=== PATIENT | female | born 1980 | race Caucasian/White ===

== ENCOUNTER 2017-08-22 13:57 | Inpatient (IN) ==
[2017-08-22 15:10] LABS: Basophils # 0.1 K/mcL (0.0-0.2); Basophils % 0.5 %; Eosinophils # 0.1 K/mcL (0.0-0.6); Eosinophils % 1.2 %; Hematocrit 41.3 % (35.3-44.9); Hemoglobin 13.8 g/dL (11.5-15.4); Immature Granulocytes % 0.3 % (0-4); Lymphocytes # 2.6 K/mcL (0.6-4.6); Lymphocytes % 24.1 %; Mean Corpuscular HGB Conc 33.4 g/dL (31.6-35.5); Mean Corpuscular Hemoglobin 29.9 pg (28.0-33.3); Mean Corpuscular Volume 89.6 fL (83.0-100.0); Mean Platelet Volume 9.2 fL (9.4-12.4); Monocytes # 0.7 K/mcL (0.0-1.3); Monocytes % 6.3 %; Neutrophils # 7.3 K/mcL (1.6-8.9); Platelet Count 299 K/mcL (140-400); Red Blood Count 4.61 M/mcL (3.82-4.97); Red Cell Distribution Width 14.9 % (11.5-14.5); Segmented Neutrophils % 67.6 %
[2017-08-22 15:15] LABS: Prothrombin Time 11.2 Seconds (9.4-12.1)
[2017-08-22 15:18] LABS: Activated Partial Thrombo Time 28.7 Seconds (26.0-36.0)
[2017-08-22] MEDS ORDERED: 0.9 % Sodium Chloride 1,000 ML IVC ONE (15:51)
[2017-08-22] MEDS ORDERED: Metoclopramide 10 MG/2 ML VIAL IVP ONE (15:51)
--- NOTE | 2017-08-22 15:52 | Emergency Department Note ---
Disposition Clinical Impression: Meningitis Headache Qualifiers: Headache type: unspecified Headache chronicity pattern: unspecified pattern Intractability: not intractable Qualified Code(s): R51 - Headache Disposition: Admitted As Inpatient Condition: Fair Referrals: Rosa Maria Renee CNP [Primary Care Provider] - Forms: ED Satisfaction Letter Time of Disposition: 18:25 Headache HPI - General Chief Complaint: ED Headache Stated Complaint: ONOFRE Time Seen by Provider: 08/22/17 14:40 Source: patient Mode of arrival: ambulatory Limitations: no limitations Nursing Notes Reviewed: Yes Vital Signs Reviewed: Yes - History of Present Illness HPI Narrative: 37-year-old female history of diabetes and hypertension presents for evaluation of a headache. Patient states she has been having a headache over the past 2 or 3 weeks. The patient states headache is worse upon standing. Patient states that her headache gradually worsened since yesterday. Noted to be frontal as well as occipital. Patient reports some nausea but no vomiting. Patient also notes difficulty focusing. Patient denies any vision changes. No change in visual acuity. Patient has any fevers. Patient denies abdominal pain. No chest pain. Patient states she does not have a significant history of migraines. Patient took Motrin earlier today. Patient was evaluated by neurology and was told to come to the ER for further evaluation. Patient denies a possibility of being . Pain Scale: 10 - Related Data Allergies Allergy/AdvReac Type Severity Reaction Status Date / Time No Known Allergies Allergy Verified 08/22/17 14:05 All systems ED: reviewed and negative except as stated. Constitutional: Denies: fever Eyes: Denies: eye pain Cardiovascular: Denies: chest pain Respiratory: Denies: cough, dyspnea Gastrointestinal: Reports: nausea. 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 Absent: scleral icterus - ENT ENT exam: normal exam, normal oropharynx - Neck Neck exam: Present: normal inspection, full ROM. Absent: meningismus - Chest Chest inspection: Present: normal inspection, symmetric chest wall rise - Respiratory Respiratory exam: Present: normal lung sounds bilaterally. Absent: respiratory distress - Cardiovascular Cardiovascular exam: Present: regular rate, normal rhythm. Absent: systolic murmur - Abdominal Exam Abdominal exam: Present: soft, Non-Tender - Extremities Exam Extremities exam: Present: normal inspection. Absent: pedal edema - Expanded Lower Extremity Exam Neurovascular/Tendon exam: Present: normal capillary refill - Back Exam Back exam: Present: normal inspection - Neurological Exam Neurological exam: Present: alert, oriented X3, CN II-XII intact - Expanded Neurological Exam Patient oriented to: Present: person, place, time Speech: Present: fluid speech Cerebellar function: finger to nose: Normal Motor strength - LUE: 5/5 Motor strength - RUE: 5/5 Motor strength - LLE: 5/5 Motor strength - RLE: 5/5 Sensory exam upper extremity: light touch: Normal Sensory exam lower extremity: light touch: Normal Coma Scale Eye Opening: Spontaneous Coma Scale Motor Response: Obeys Commands Coma Scale Verbal Response: Oriented Coma Scale Total: 15 - Skin Skin exam: Present: warm, dry, intact, normal color Course Course Narrative: Patient seen and examined. Patient appears to be in no acute distress. Patient is sitting in a hallway bed. Patient will get basic labs, and symptomatically for headache. Given the fact that there is no proper place to do a lumbar puncture in the emergency department with staffing the patient will be sent down to IR for further evaluation with IR. - Reevaluation(s) Reevaluation #1: Patient back from LP. Opening pressure low and couldn't record. Time: 16:35 Reevaluation #2: Patient still has a headache. Time: 17:19 - Consultations Consultation #1: Spoke with Dr. Olea, neurology who will see the patient as a consult. Time: 18:25 Vital Signs Temperature 97.8 F 08/22/17 14:06 Pulse Rate 102 08/22/17 14:06 Respiratory Rate 16 08/22/17 14:06 Blood Pressure 145/102 08/22/17 14:06 O2 Sat by Pulse Oximetry 98 08/22/17 14:06 Temperature 97.8 F 08/22/17 14:06 Pulse Rate 92 08/22/17 17:03 Respiratory Rate 16 08/22/17 17:03 Blood Pressure 145/74 08/22/17 17:03 O2 Sat by Pulse Oximetry 99 08/22/17 17:03 Oxygen Delivery Oxygen Delivery Room Air Headache - MDM Narrative Medical decision making narrative: Patient presents with signs of severe headache. Patient was sent over by neurology. Patient's CSF results reviewed shows that she does have meningitis. Patient's CSF opening pressure could not be obtained because it was so low. Patient was started on acyclovir, vancomycin, Rocephin. Patient's vitals been stable. Patient pain has been addressed. Patient felt comfortable. She will be admitted to the hospitalist service with neurology consult. - Lab Data Lab results reviewed: Yes I reviewed the patient's lab results. Result diagrams: 08/22/17 14:51 08/22/17 14:51 Lab Results 08/22/17 08/22/17 08/22/17 Range/Units 14:51 14:51 14:51 WBC 10.8 (4.3-11.1) K/mcL RBC 4.61 (3.82-4.97) M/mcL Hgb 13.8 (11.5-15.4) g/dL Hct 41.3 (35.3-44.9) % MCV 89.6 (83.0-100.0) fL MCH 29.9 (28.0-33.3) pg MCHC 33.4 (31.6-35.5) g/dL RDW 14.9 H (11.5-14.5) % Plt Count 299 (140-400) K/mcL MPV 9.2 L (9.4-12.4) fL Immature Gran % 0.3 (0-4) % Seg Neutrophils % 67.6 % Lymphocytes % 24.1 % Monocytes % 6.3 % Eosinophils % 1.2 % Basophils % 0.5 % Neutrophils # 7.3 (1.6-8.9) K/mcL Lymphocytes # 2.6 (0.6-4.6) K/mcL Monocytes # 0.7 (0.0-1.3) K/mcL Eosinophils # 0.1 (0.0-0.6) K/mcL Basophils # 0.1 (0.0-0.2) K/mcL PT 11.2 (9.4-12.1) Seconds INR 1.0 APTT 28.7 (26.0-36.0) Seconds Sodium 138 (136-145) mEq/L Potassium 3.7 (3.5-5.1) mEq/L Chloride 104 (98-107) mEq/L Carbon Dioxide 23 (23-29) mEq/L BUN 14 (6-20) mg/dL Creatinine 0.62 (0.60-1.20) mg/dL Est GFR ( Amer) > 60 (> 60) Est GFR (Non-Af Amer) > 60 (> 60) BUN/Creatinine Ratio 23 (6-26) Glucose 144 H (70-105) mg/dL Calculated Osmolality 289 (280-300) Calcium 9.2 (8.6-10.3) mg/dL Total Bilirubin 0.6 (0.3-1.0) mg/dL Direct Bilirubin 0.1 (0.0-0.2) mg/dL Indirect Bilirubin 0.5 (0.0-1.2) mg/dL AST 18 (13-39) Units/L ALT 35 (7-52) Units/L Alkaline Phosphatase 65 (34-104) Units/L Serum Total Protein 6.9 (6.4-8.9) g/dL Albumin 4.5 (3.5-5.7) g/dL Globulin 2.4 (2.4-3.5) g/dL Albumin/Globulin Ratio 1.9 (1.1-2.2) Urine Test (Negative) CSF Volume mL CSF Appearance (Clear) CSF Color (Colorless) CSF RBC (0.000 - 0.002) M/mcL CSF Tot Nucleated Cells (0-5) TNC/mcL CSF Glucose (40-70) mg/dL CSF Xanth Comm (Not Observe) CSF Total Protein (15-45) mg/dL 08/22/17 08/22/17 Range/Units 16:21 17:28 WBC (4.3-11.1) K/mcL RBC (3.82-4.97) M/mcL Hgb (11.5-15.4) g/dL Hct (35.3-44.9) % MCV (83.0-100.0) fL MCH (28.0-33.3) pg MCHC (31.6-35.5) g/dL RDW (11.5-14.5) % Plt Count (140-400) K/mcL MPV (9.4-12.4) fL Immature Gran % (0-4) % Seg Neutrophils % % Lymphocytes % % Monocytes % % Eosinophils % % Basophils % % Neutrophils # (1.6-8.9) K/mcL Lymphocytes # (0.6-4.6) K/mcL Monocytes # (0.0-1.3) K/mcL Eosinophils # (0.0-0.6) K/mcL Basophils # (0.0-0.2) K/mcL PT (9.4-12.1) Seconds INR APTT (26.0-36.0) Seconds Sodium (136-145) mEq/L Potassium (3.5-5.1) mEq/L Chloride (98-107) mEq/L Carbon Dioxide (23-29) mEq/L BUN (6-20) mg/dL Creatinine (0.60-1.20) mg/dL Est GFR ( Amer) (> 60) Est GFR (Non-Af Amer) (> 60) BUN/Creatinine Ratio (6-26) Glucose (70-105) mg/dL Calculated Osmolality (280-300) Calcium (8.6-10.3) mg/dL Total Bilirubin (0.3-1.0) mg/dL Direct Bilirubin (0.0-0.2) mg/dL Indirect Bilirubin (0.0-1.2) mg/dL AST (13-39) Units/L ALT (7-52) Units/L Alkaline Phosphatase (34-104) Units/L Serum Total Protein (6.4-8.9) g/dL Albumin (3.5-5.7) g/dL Globulin (2.4-3.5) g/dL Albumin/Globulin Ratio (1.1-2.2) Urine Test Negative (Negative) CSF Volume 8.5 mL CSF Appearance Clear (Clear) CSF Color Colorless (Colorless) CSF RBC < 0.002 (0.000 - 0.002) M/mcL CSF Tot Nucleated Cells 27 H* (0-5) TNC/mcL CSF Glucose 83 H (40-70) mg/dL CSF Xanth Comm Not Observed (Not Observe) CSF Total Protein 84 H (15-45) mg/dL - Radiology Data Radiology results reviewed: Yes I reviewed the patient's radiology results. CT/CT head/brain wo con IMPRESSION: No acute intraparenchymal hemorrhage or evidence of acute major vessel ischemia. Extra-axial fluid is pronounced for age. Hounsfield number measurements suggest uncomplicated fluid. RECOMMENDATIONS: Consider MRI imaging of the brain. D/ / Elli Chopra MD / Elli Chopra MD Interpreting Provider: Elli Chopra MD Lito - Lito Situation: Demographics Background: Presenting Complaint Assessment: Vital Signs, Patient/Family Expectation Recommendation: Barrier(s) to disposition, Recommendation based on pending studies, treatments, or consults Lito Report Given to: Dr. Jay Morse Repor Time: 18:26 Attestation Statement - Attestation Attestation: I examined this patient and my medical decision-making was reviewed with the Resident Physician. I agree with the documented findings, disposition and treatment plan as described except to the extent set forth below. Findings consistent with viral meningitis. Discussed case with on-call neurologist. We will start broad spectrum antibiotics to cover for possible bacterial causes pending culture results. Patient will be admitted after initiation of vancomycin, ceftriaxone, acyclovir. Patient's headache was controlled with Haldol.
[2017-08-22] MEDS ORDERED: Haloperidol Lactate 5 MG/ML VIAL IVP ONE (17:18)
[2017-08-22] MEDS ORDERED: Dexamethasone 4 MG/ML VIAL IVP ONE (17:18)
[2017-08-22 17:20] LABS: Red Blood Cell,CSF < 0.002 M/mcL
[2017-08-22 17:31] LABS: Alanine Aminotransferase 35 Units/L (7-52); Albumin 4.5 g/dL (3.5-5.7); Albumin/Globulin Ratio 1.9 (1.1-2.2); Alkaline Phosphatase 65 Units/L (34-104); Aspartate Amino Transferase 18 Units/L (13-39); BUN/Creatinine Ratio 23 (6-26); Bilirubin,Direct 0.1 mg/dL (0.0-0.2); Bilirubin,Indirect 0.5 mg/dL (0.0-1.2); Bilirubin,Total 0.6 mg/dL (0.3-1.0); Blood Urea Nitrogen 14 mg/dL (6-20); Calcium 9.2 mg/dL (8.6-10.3); Carbon Dioxide 23 mEq/L (23-29); Chloride 104 mEq/L (98-107); Globulin 2.4 g/dL (2.4-3.5); Glucose 144 mg/dL (70-105); Osmolality,Calculated 289 (280-300); Potassium 3.7 mEq/L (3.5-5.1); Sodium 138 mEq/L (136-145); Total Protein 6.9 g/dL (6.4-8.9); eGFR For African Americans > 60 (> 60); eGFR For Non-African Americans > 60 (> 60)
[2017-08-22 17:39] LABS: Glucose,CSF 83 mg/dL (40-70); Total Protein,CSF 84 mg/dL (15-45)
[2017-08-22] MEDS ORDERED: Acyclovir 500 MG in D5% in Water 100 ML IVPB ONE (17:53)
[2017-08-22] MEDS ORDERED: cefTRIAXone 2,000 MG in Water for inj. (sterile) 20 ML 20 ML IVP ONE (17:53)
[2017-08-22 18:15] LABS: Appearance,CSF Clear (Clear)
--- NOTE | 2017-08-22 21:43 | Internal Med History&Physical ---
Date of Encounter: 08/22/17 Time of Encounter: 21:41 Assessment and Plan (1) Diabetes 1.5, managed as type 2 Current visit: Yes Status: Chronic Chronic resume home medication and place on sliding scale (2) HTN (hypertension) Current visit: Yes Status: Chronic Chronic blood pressure relatively controlled Qualifiers: Hypertension type: essential hypertension Qualified Code(s): I10 - Essential (primary) hypertension (3) Obesity Current visit: Yes Status: Chronic Qualifiers: Obesity type: due to excess calories Obesity classification: unspecified obesity classification Serious obesity comorbidity presence: unspecified whether serious comorbidity present Qualified Code(s): E66.09 - Other obesity due to excess calories (4) Headache Current visit: Yes Status: Acute Admitted due to meningitis Qualifiers: Headache type: unspecified Headache chronicity pattern: unspecified pattern Intractability: not intractable Qualified Code(s): R51 - Headache (5) Meningitis Current visit: Yes Status: Acute Patient is seen by neurology to the ER LP CSF suggestive of meningitis we will continue antibiotic and consult neurology for further evaluation Internal Medicine - H&P: HPI Chief complaint: headache x 3 weeka Admitted From: Emergency Dept Plans for Post Hospital Care: Home History of present illness: Ms. Austin is a 37 year old female Patient with history of diabetes, hypertension, obesity, patient was seen by neurology due to 2-3 weeks of a headache located frontal and occipital area which has gotten worse in the last 2 days with nausea and difficulty focusing patient was then sent to the emergency room for evaluation In the ER patient had LP done which is suggestive of meningitis and was given acyclovir vancomycin and Rocephin and admitted for further neurologic consult and evaluation CSF showed increased glucose, protein and nucleated cells patient denies any visual disturbance CT of the head was unremarkable Past Med Surg Social Fam HX - Past Medical History Medical history: diabetes, hypertension Psychiatric history: no psych history - Social History Smoking Status: Never smoker Smokeless Tobacco Status: No Alcohol use: none Drug use: none - Family History Mother Living Status: Still Living Hx Family Cardiac Disorders: Yes Father Living Status: Still Living Hx Family Cardiac Disorders: Yes Hx Family Endocrine Disorder: Yes (DM) Internal Medicine - H&P: Meds Acetylcysteine [K-Xtxdal-x-Cysteine] 600 mg PO BID 08/22/17 [History] Amoxicillin/Clavulanate [Augmentin] 875 mg PO BID 08/22/17 [History] Cyclobenzaprine HCl 5 mg PO TID PRN 08/22/17 [History] Dapagliflozin Propanediol [Farxiga] 5 mg PO DAILY 08/22/17 [History] Gabapentin [Neurontin] 300 mg PO HS 08/22/17 [History] Insulin NPH, HUMAN [HumuLIN N] 24 unit SQ BID 08/22/17 [History] Insulin Regular, Human [Novolin R] 0 unit SQ TIDWM 08/22/17 [History] Liraglutide [Saxenda] 1.8 mg SQ QPM 08/22/17 [History] Metformin HCl [Glucophage] 1,000 mg PO BID 08/22/17 [History] Methyldopa 750 mg PO BID 08/22/17 [History] Metoprolol Succinate 100 mg PO DAILY 08/22/17 [History] Norethindrone Acetate [Norethindrone AC ([place])] 5 mg PO DAILY 08/22/17 [ History] [place]-3/Dha/Epa/Fish Oil [Fish Oil 1,000 mg Softgel] 1,000 mg PO DAILY 08/22/17 [History] Ondansetron ODT [Zofran ODT] 4 mg PO BID PRN 08/22/17 [History] Pnv with Ca,No.72/Iron/FA [Pnv Plus Multivit Tab] 1 tab PO DAILY [History] SUMAtriptan succinate [Imitrex] 50 mg PO Q2H PRN MDD 100 mg 08/22/17 [History] hydroCHLOROthiazide [Hydrochlorothiazide] 25 mg PO DAILY 08/22/17 [History] 3 Allergy/AdvReac Type Severity Reaction Status Date / Time No Known Allergies Allergy Verified 08/22/17 14:05 All Systems PM: A 10-system review of systems was performed and is negative for pertinent findings except as documented above in the HPI. - Constitutional Constitutional: other - EENT Eyes: no change in vision, no discharge, no pain, no photophobia Ears: no ear discharge, no ear pain, no tinnitus Nose, mouth and throat: no dysphagia, no nasal discharge, no neck pain, no sore throat - Cardiovascular Cardiovascular ROS IM: no chest pain, no diaphoresis, no dyspnea, no lightheadedness, no palpitations, no syncope - Respiratory Respiratory: no cough, no dyspnea, no wheezing, no excessive phlegm production - Gastrointestinal Gastrointestinal: no abdominal pain, no diarrhea, no hematemesis, no hematochezia, no melena, no nausea, no vomiting - Genitourinary Genitourinary: no change in urinary stream, no dysuria, no flank pain, no hematuria - Musculoskeletal Musculoskeletal ROS IM: no numbness, no tingling - Integumentary Integumentary IM: no rash, no unusual bruising - Neurological Neurological ROS: headache(s) - Constitutional Vitals: Temp Pulse Resp BP Pulse Ox 98.3 F 106 16 146/71 95 08/22/17 20:31 08/22/17 20:31 08/22/17 20:31 08/22/17 20:31 08/22/17 20:31 - Head Head exam: Present: atraumatic, normocephalic - Eye Eye exam: Present: PERRL, conjuntiva pink, sclera anicteric Pupils: Present: PERRL - Neck Neck exam general surgery: Present: supple, trachea midline. Absent: lymphadenopathy - Respiratory Respiratory exam: Present: CTAB. Absent: accessory muscle use, rales, rhonchi, wheezes - Cardiovascular Cardiovascular exam: Present: RRR, +S1, +S2. Absent: diastolic murmur, gallop, rubs, systolic murmur - GI/Abdominal GI/Abdominal exam: Present: normal bowel sounds, soft, no peritoneal signs. Absent: distended, tenderness - Extremities Exam Extremities exam: Present: warm, radial pulses palpable and symmetrical. Absent : calf tenderness, cyanotic, pedal edema - Neurological Exam Neurological exam: Present: CN II-XII intact, oriented X3, no focal deficits. Absent: pronater drift, facial droop, speech deficit - Skin Skin exam: Present: dry, intact Internal Med - H&P Results - Labs CBC & Chem 7: 08/22/17 14:51 08/22/17 14:51
[2017-08-22] MEDS ORDERED: Naloxone 0.4 MG/ML INJ IVP PRN (21:48)
[2017-08-22] MEDS ORDERED: SUMAtriptan succinate 50 MG TABLET PO PRN (21:50)
[2017-08-22] MEDS ORDERED: 0.9 % Sodium Chloride 1,000 ML ONE (22:07)
[2017-08-22] MEDS: 0.9 % Sodium Chloride 1,000 ML IVC SCH (22:42)
[2017-08-23] MEDS: Acyclovir 750 MG in D5% in Water 250 ML IVPB SCH ×2 (02:01→15:11)
[2017-08-23] MEDS: Acetaminophen 325 MG TABLET PO PRN ×3 (02:08→17:58)
[2017-08-23 05:59] LABS: Hematocrit 43.5 % (35.3-44.9); Hemoglobin 14.2 g/dL (11.5-15.4); Mean Corpuscular HGB Conc 32.6 g/dL (31.6-35.5); Mean Corpuscular Hemoglobin 29.5 pg (28.0-33.3); Mean Corpuscular Volume 90.2 fL (83.0-100.0); Mean Platelet Volume 9.3 fL (9.4-12.4); Platelet Count 363 K/mcL (140-400); Red Blood Count 4.82 M/mcL (3.82-4.97); Red Cell Distribution Width 14.6 % (11.5-14.5)
[2017-08-23] MEDS ORDERED: *HR* Enoxaparin 40 MG/0.4 ML SYRINGE SQ SCH (06:00)
[2017-08-23 06:19] LABS: Alanine Aminotransferase 38 Units/L (7-52); Albumin 4.5 g/dL (3.5-5.7); Albumin/Globulin Ratio 1.7 (1.1-2.2); Alkaline Phosphatase 75 Units/L (34-104); Aspartate Amino Transferase 15 Units/L (13-39); BUN/Creatinine Ratio 19 (6-26); Bilirubin,Total 0.6 mg/dL (0.3-1.0); Blood Urea Nitrogen 11 mg/dL (6-20); Calcium 9.2 mg/dL (8.6-10.3); Carbon Dioxide 21 mEq/L (23-29); Chloride 101 mEq/L (98-107); Chol/HDL Ratio 7.2 (0-4.9); Cholesterol 274 mg/dL (< 200); Globulin 2.6 g/dL (2.4-3.5); Glucose 208 mg/dL (70-105); HDL Cholesterol 38 mg/dL (40-59); LDL Cholesterol,Calculated 164 mg/dL (0-99); Magnesium 1.9 mg/dL (1.6-2.6); Osmolality,Calculated 285 (280-300); Potassium 4.3 mEq/L (3.5-5.1); Sodium 135 mEq/L (136-145); Total Protein 7.1 g/dL (6.4-8.9); Triglycerides 360 mg/dL (< 150); eGFR For African Americans > 60 (> 60); eGFR For Non-African Americans > 60 (> 60)
--- NOTE | 2017-08-23 08:24 | Neurology Progress Note ---
Date of Encounter: 08/23/17 Time of Encounter: 08:22 Assessment and Plan (1) Viral meningitis, unspecified Current Visit: Yes Status: Acute It seems that we are dealing with an uncomplicated viral meningitis. There is no evidence of encephalitis. Clinically she is improved today her headache is 4 /10 as opposed to yesterday morning was 10 out of 10. Recommend maintaining on antibiotics until cultures are completed. If this is a herpes meningitis a treatment is generally the same as it is with any aseptic meningitis. Recovery may be expedited by continuing oral acyclovir for 10 days or so after she is discharged. Recommend ongoing pain management as necessary and fluid hydration. MRI of the brain will be ordered to further assess and clarify the CT abnormalities. I will continue to follow her. Subjective Principal diagnosis: Viral meningitis Interval history: The chart was reviewed, the patient was seen and examined. Patient was sent to the ED from my office after a week of occipital nuchal headache that was intensifying. Ultimately lumbar puncture was performed and revealed elevated white blood cells and elevated protein. 79% lymphocytes, 19% monocytes. Gram stain was negative. Patient has no mental status changes or seizures. We are likely dealing with an uncomplicated viral meningitis. CT scan of the brain was normal. The patient this morning states that her headache is about a 4 on a scale of 10. Yesterday it was definitely a 10 out of 10. She still has some photophobia. Otherwise she is awake and alert and oriented. Objective - Constitutional Vitals: Temp Pulse Resp BP Pulse Ox 98.7 F 115 16 153/86 97 08/23/17 06:34 08/23/17 06:34 08/23/17 06:34 08/23/17 06:34 08/23/17 06:34 - Neurological Exam Sensorimotor examination: Present: intact Motor Examination: Present: grossly full strength in all extremities Motor examination - right side: 5/5: deltoids, biceps, triceps, cfo controller, hip flexors, tibialis Anterior, quadriceps, toe extension (EHL), plantarflexion Motor examination - left side: 5/5: deltoids, biceps, triceps, cfo controller, quadriceps , tibialis Anterior, toe extension (EHL), plantarflexion Sensation intact: Present: intact Reflex and gait examination: intact Reflexes: Biceps: 2+, Triceps: 2+, Brachioradialis: 2+, Patella: 2+, Achilles: 2 + Mental Status Examination: Present: awake, alert, oriented to person, oriented to place, oriented to time, follows commands appropriately, answers questions appropriately, no agnosia, no aphasia, no aproxia, lucid Cranial nerve examination: Present: PERRL, EOMI, visual jefferson intact, corneal reflexes brisk symmetrically, sensory to face intact, mastication intact, no facial asymmetry is present, no dysarthria, hearing is intact symmetrically, tongue protrudes midline Cerebellar examination: Present: no dysmetria, performs finger to nose and heel to chavez symmetrically without ataxia, no gait ataxia Results - Laboratory Findings CBC and BMP: 08/23/17 05:24 08/23/17 05:24 Abnormal lab findings: Abnormal lab results WBC 14.9 K/mcL (4.3-11.1) H 08/23/17 05:24 RDW 14.6 % (11.5-14.5) H 08/23/17 05:24 MPV 9.3 fL (9.4-12.4) L 08/23/17 05:24 Sodium 135 mEq/L (136-145) L 08/23/17 05:24 Carbon Dioxide 21 mEq/L (23-29) L 08/23/17 05:24 Creatinine 0.59 mg/dL (0.60-1.20) L 08/23/17 05:24 Glucose 208 mg/dL (70-105) H 08/23/17 05:24 POC Glucose 188 (58-89) H 08/22/17 22:51 Triglycerides 360 mg/dL (< 150) H 08/23/17 05:24 Cholesterol 274 mg/dL (< 200) H 08/23/17 05:24 LDL Cholesterol, Calc 164 mg/dL (0-99) H 08/23/17 05:24 VLDL Cholesterol, Calc 72 mg/dL (< 31) H 08/23/17 05:24 HDL Cholesterol 38 mg/dL (40-59) L 08/23/17 05:24 Cholesterol/HDL Ratio 7.2 (0-4.9) H 08/23/17 05:24 CSF Tot Nucleated Cells 27 TNC/mcL (0-5) H* 08/22/17 16:21 CSF Glucose 83 mg/dL (40-70) H 08/22/17 16:21 CSF Total Protein 84 mg/dL (15-45) H 08/22/17 16:21 Consult Discharge Plan - Plan Referrals: Rosa Maria Renee CNP [Primary Care Provider] -
[2017-08-23] MEDS: *HR* Acetylcysteine 20% 600 MG/3 ML ORAL SYRINGE PO SCH ×2 (09:24→20:42)
[2017-08-23] MEDS: Prenatal Vit/FA 1 EACH TABLET PO SCH (09:25)
[2017-08-23] MEDS: cefTRIAXone 1,000 MG in Water for inj. (sterile) 20 ML 10 ML IVP SCH (09:25)
[2017-08-23] MEDS: Insulin NPH 100 UNIT/ML (x5UNIT) SQ SCH ×2 (09:48→20:42)
[2017-08-23] MEDS: (Dapagliflozin Propanediol [Farxiga] 5 MG) PO SCH (09:50)
[2017-08-23] MEDS: (Omega-3/Dha/Epa/Fish Oil [Fish Oil 1,000 Mg Softgel]) PO SCH (09:50)
[2017-08-23] MEDS ORDERED: Dextrose Gel 15 GM/37.5 ML TUBE PO PRN ×2 (12:20)
[2017-08-23] MEDS ORDERED: *HR* Dextrose 50 % in Water (Syg) 50 ML SYRINGE IVP PRN (12:20)
[2017-08-23] MEDS ORDERED: D5% in Water 1,000 ML IVC PRN (12:20)
[2017-08-23] MEDS ORDERED: Insulin LISPRO 300 UNITS/3 ML VIAL SQ ONE (12:38)
[2017-08-23] MEDS: traMADol 50 MG TABLET PO PRN ×2 (15:17→21:15)
[2017-08-23] MEDS: 0.9 % Sodium Chloride 1,000 ML IVC SCH (16:29)
[2017-08-23] MEDS ORDERED: Insulin LISPRO 300 UNITS/3 ML VIAL SQ SCH (16:30)
--- NOTE | 2017-08-23 16:39 | Internal Med Progress Note ---
Date of Encounter: 08/23/17 Time of Encounter: 16:05 - Assessment and plan (1) Viral meningitis, unspecified Current Visit: Yes Status: Acute Assessment and plan: No evidence of encephalitis her headache has improved since presenting yesterday to the ER. We will continue with antibiotics pending culture results. We will also continue with acyclovir for any possible herpes meningitis continue with IV fluids and pain medications. Neurology has been consulted and appreciate their recommendations (2) Headache Current Visit: Yes Status: Acute Assessment and plan: Patient has been experiencing a headache over the past 2-3 weeks. Patient states headache is worse upon standing she describes the pain headache as pressure radiating from back to front of head. Initially she had some nausea but no vomiting and photophobia. She was seen by neurology sent to the ER evaluation underwent LP-viral meningitis. CT of head with no abnormalities she did undergo a MRI of head which did show diffuse bilateral holohemispheric subdural collections measuring up to 5 mm in thickness compatible with chronic subdural hematoma/hygroma. There is diffuse patchy meningeal thickening and enhancement which is probablly reactive. I did review this with Dr. Olea neurology who will further review MRI. Patient may need to be transferred to a facility with neurosurgery discussed this with patient and who is at bedside who verbalized understanding and agrees to possible transfer if needed Qualifiers: Headache type: unspecified Headache chronicity pattern: unspecified pattern Intractability: not intractable Qualified Code(s): R51 - Headache (3) Diabetes 1.5, managed as type 2 Current Visit: Yes Status: Chronic Assessment and plan: We will continue with Accu-Cheks before meals at bedtime with sliding scale insulin as well as basal insulin Diabetic diet (4) HTN (hypertension) Current Visit: Yes Status: Chronic Assessment and plan: Presently controlled will continue with home medications Qualifiers: Hypertension type: essential hypertension Qualified Code(s): I10 - Essential (primary) hypertension - Time Spent With Patient less than 15 minutes - Subjective Interval history: Patient states that she does have a headache however is greatly improved from when she first arrived to the hospital. She describes the headache as dull starting at the neck radiating to the top of her head. She denies any nausea/ vomiting or photophobia. Pain is relieved with pain medication. No other complaints - Constitutional Vitals: Temp Pulse Resp BP Pulse Ox 98.8 F 98 15 149/97 99 08/23/17 15:03 08/23/17 15:03 08/23/17 15:03 08/23/17 15:03 08/23/17 15:03 General appearance: Present: A&O X 3 - Head Head exam: Present: atraumatic, normocephalic - Eye Eye exam: Present: PERRL, conjuntiva pink, sclera anicteric Pupils: Present: PERRL - Neck Neck exam general surgery: Present: supple, trachea midline. Absent: lymphadenopathy - Respiratory Respiratory exam: Present: CTAB. Absent: accessory muscle use, rales, rhonchi, wheezes - Cardiovascular Cardiovascular exam: Present: RRR, +S1, +S2. Absent: diastolic murmur, gallop, rubs, systolic murmur - GI/Abdominal GI/Abdominal exam: Present: normal bowel sounds, soft, no peritoneal signs. Absent: distended, tenderness - Extremities Exam Extremities exam: Present: warm, radial pulses palpable and symmetrical. Absent : calf tenderness, cyanotic, pedal edema - Neurological Exam Neurological exam: Present: CN II-XII intact, oriented X3, no focal deficits. Absent: pronater drift, facial droop, speech deficit - Skin Skin exam: Present: dry, intact Internal Medicine: Result - Labs CBC & Chem 7: 08/23/17 05:24 08/23/17 05:24 Labs: Short CBC 08/23/17 Range/Units 05:24 WBC 14.9 H (4.3-11.1) K/mcL Hgb 14.2 (11.5-15.4) g/dL Hct 43.5 (35.3-44.9) % Plt Count 363 (140-400) K/mcL BMP 08/23/17 05:24 Sodium 135 L Potassium 4.3 Chloride 101 Carbon Dioxide 21 L BUN 11 Creatinine 0.59 L Glucose 208 H Calcium 9.2 Liver Function 08/23/17 Range/Units 05:24 Total Bilirubin 0.6 (0.3-1.0) mg/dL AST 15 (13-39) Units/L ALT 38 (7-52) Units/L Alkaline Phosphatase 75 (34-104) Units/L Albumin 4.5 (3.5-5.7) g/dL - ABG Interpretation ABG results: PT/INR, D-dimer PT 11.2 Seconds (9.4-12.1) 08/22/17 14:51 - Impressions Impressions Brain MRI 08/23/17 08:31 IMPRESSION: 1. Diffuse bilateral holohemispheric subdural collections measuring up to 5 mm in thickness compatible with chronic subdural hematoma/hygroma. There is diffuse pachymeningeal thickening and enhancement which is probably reactive. Differential diagnosis includes intracranial hypotension. D/ / 08/23/2017 11:38:50 Tete Robertson MD / levon Interpreting Provider: Tete Robertson MD - Diagnostic Studies Other Images Additional comments: Lumbar Puncture Fluoroscopy 08/22/17 00:00 IMPRESSION: Successful fluoroscopic-guided lumbar puncture. D/ / 08/23/2017 10:36:47 Emely Nuñez MD / daily Interpreting Provider: Emely Nuñez MD Brain MRI 08/23/17 08:31 IMPRESSION: 1. Diffuse bilateral holohemispheric subdural collections measuring up to 5 mm in thickness compatible with chronic subdural hematoma/hygroma. There is diffuse pachymeningeal thickening and enhancement which is probably reactive. Differential diagnosis includes intracranial hypotension. D/ / 08/23/2017 11:38:50 Tete Robertson MD / levon Interpreting Provider: Tete Robertson MD Consult Discharge Plan - Plan Referrals: Rosa Maria Renee, CREDIT CASHIER [Primary Care Provider] -
[2017-08-23] MEDS: LIRAGLUTIDE 1.8 MG SQ SCH (17:51)
[2017-08-23] MEDS: Insulin LISPRO 300 UNITS/3 ML VIAL SQ SCH ×2 (18:05→20:43)
[2017-08-23] MEDS: Gabapentin 300 MG CAPSULE PO SCH (20:42)
[2017-08-23] MEDS: Lactobacillus 1 EACH CAP.SPRINK PO SCH (23:19)
[2017-08-24] MEDS: Acyclovir 750 MG in D5% in Water 250 ML IVPB SCH ×4 (00:10→23:35)
[2017-08-24 04:16] LABS: Basophils % 0.3 %; Eosinophils % 0.3 %; Hematocrit 37.7 % (35.3-44.9); Hemoglobin 12.7 g/dL (11.5-15.4); Immature Granulocytes % 0.3 % (0-4); Lymphocytes % 27.8 %; Mean Corpuscular HGB Conc 33.7 g/dL (31.6-35.5); Mean Corpuscular Volume 89.1 fL (83.0-100.0); Mean Platelet Volume 9.3 fL (9.4-12.4); Monocytes # 0.8 K/mcL (0.0-1.3); Monocytes % 7.2 %; Neutrophils # 6.8 K/mcL (1.6-8.9); Platelet Count 310 K/mcL (140-400); Red Blood Count 4.23 M/mcL (3.82-4.97); Red Cell Distribution Width 15.1 % (11.5-14.5); Segmented Neutrophils % 64.1 %
[2017-08-24 04:42] LABS: BUN/Creatinine Ratio 24 (6-26); Blood Urea Nitrogen 11 mg/dL (6-20); Calcium 8.6 mg/dL (8.6-10.3); Carbon Dioxide 22 mEq/L (23-29); Chloride 107 mEq/L (98-107); Glucose 194 mg/dL (70-105); Osmolality,Calculated 291 (280-300); Potassium 3.8 mEq/L (3.5-5.1); Sodium 138 mEq/L (136-145); eGFR For African Americans > 60 (> 60); eGFR For Non-African Americans > 60 (> 60)
[2017-08-24] MEDS: cefTRIAXone 1,000 MG in Water for inj. (sterile) 20 ML 10 ML IVP SCH (08:17)
[2017-08-24] MEDS: *HR* Acetylcysteine 20% 600 MG/3 ML ORAL SYRINGE PO SCH ×2 (08:21→21:07)
[2017-08-24] MEDS: Acetaminophen 325 MG TABLET PO PRN ×3 (08:23→21:11)
[2017-08-24] MEDS: hydroCHLOROthiazide 25 MG TABLET PO SCH (08:23)
[2017-08-24] MEDS: Lactobacillus 1 EACH CAP.SPRINK PO SCH ×2 (08:23→21:06)
[2017-08-24] MEDS: Prenatal Vit/FA 1 EACH TABLET PO SCH (08:24)
[2017-08-24] MEDS: Insulin LISPRO 300 UNITS/3 ML VIAL SQ SCH ×4 (08:34→21:08)
[2017-08-24] MEDS: (Omega-3/Dha/Epa/Fish Oil [Fish Oil 1,000 Mg Softgel]) PO SCH (08:35)
[2017-08-24] MEDS: (Dapagliflozin Propanediol [Farxiga] 5 MG) PO SCH (08:35)
[2017-08-24] MEDS ORDERED: Lactobacillus 1 EACH CAP.SPRINK PO SCH (09:00)
--- NOTE | 2017-08-24 09:12 | Neurology Progress Note ---
Date of Encounter: 08/24/17 Time of Encounter: 09:09 Assessment and Plan (1) Viral meningitis, unspecified Current Visit: Yes Status: Acute (2) Chronic intracranial subdural hematoma Current Visit: Yes Status: Acute The MRI scan of the brain does show what appears to be chronic subdural hematoma /hygroma along with enhancement of the meninges. This is not uncommon in individuals with low CSF pressure. Generally low CSF pressure is associated with some previous trauma, or dural puncture. However in this case it seems to be spontaneous. Not certain whether not this this may be the result of massage , or whether or not this may be a result of the viral meningitis. But in any regard to headaches are still waxing and waning. I would like to get a neurosurgical opinion on this and determine whether or not an angiogram is necessary. She might also need hypercoagulable workup. Fluid hydration is certainly in order. I would recommend we continue the antibiotics now pending final culture. I would recommend transfer to a tertiary care facility for neurosurgical evaluation regarding the low CSF pressure and the resulting subdural hematomas. I did not however feel that the subdurals need evacuation as she is awake and alert and there was no evidence of midline shift or herniation. Case was discussed with internal medicine. Recommend repeat CT of the brain today. Subjective Principal diagnosis: Viral meningitis Interval history: The chart was reviewed, patient was seen and examined. This is currently sitting up in her bed. She is alert and oriented to person place and time follows commands and answers questions appropriately. Her headaches seem to be waxing and waning. This morning she does have a headache that about a 6 or 7 on a scale of 10. However she is no longer experiencing the Positional component. MRI scan of the brain revealed bifrontal hygroma with meningeal enhancement suggesting a component of chronicity. The cultures are still pending. I once again reiterated the history with her and she states that this all started about 3 weeks ago after receiving a massage with a primarily focused on her low back and only a little on her neck. She denies any trauma, denies any head injury, she denies alcohol use or abuse. She denies any whiplash type injury. She has not had any dural punctures anything of this nature prior to her assessment by me. Today she complains of some neck stiffness and tenderness. Objective - Constitutional Vitals: Temp Pulse Resp BP Pulse Ox 98.4 F 95 18 153/88 100 08/24/17 07:16 08/24/17 07:16 08/24/17 07:16 08/24/17 07:16 08/24/17 07:16 - Neurological Exam Sensorimotor examination: Present: intact Motor Examination: Present: grossly full strength in all extremities Motor examination - right side: 55: deltoids, biceps, triceps, narrow fabrics weaver, hip flexors, tibialis Anterior, quadriceps, toe extension (EHL), plantarflexion Motor examination - left side: 55: deltoids, biceps, triceps, narrow fabrics weaver, quadriceps , tibialis Anterior, toe extension (EHL), plantarflexion Sensation intact: Present: intact Reflex and gait examination: intact Mental Status Examination: Present: awake, alert, oriented to person, oriented to place, oriented to time, follows commands appropriately, answers questions appropriately, no agnosia, no aphasia, no aproxia, lucid Cranial nerve examination: Present: PERRL, EOMI, visual jefferson intact, corneal reflexes brisk symmetrically, sensory to face intact, mastication intact, no facial asymmetry is present, no dysarthria, hearing is intact symmetrically, tongue protrudes midline Cerebellar examination: Present: no dysmetria, performs finger to nose and heel to chavez symmetrically without ataxia, no gait ataxia Results - Laboratory Findings CBC and BMP: 08/24/17 03:47 08/24/17 03:47 Abnormal lab findings: Abnormal lab results RDW 15.1 % (11.5-14.5) H 08/24/17 03:47 MPV 9.3 fL (9.4-12.4) L 08/24/17 03:47 Carbon Dioxide 22 mEq/L (23-29) L 08/24/17 03:47 Creatinine 0.46 mg/dL (0.60-1.20) L 08/24/17 03:47 Glucose 194 mg/dL (70-105) H 08/24/17 03:47 POC Glucose 168 (58-89) H 08/24/17 08:13 Triglycerides 360 mg/dL (< 150) H 08/23/17 05:24 Cholesterol 274 mg/dL (< 200) H 08/23/17 05:24 LDL Cholesterol, Calc 164 mg/dL (0-99) H 08/23/17 05:24 VLDL Cholesterol, Calc 72 mg/dL (< 31) H 08/23/17 05:24 HDL Cholesterol 38 mg/dL (40-59) L 08/23/17 05:24 Cholesterol/HDL Ratio 7.2 (0-4.9) H 08/23/17 05:24 CSF Tot Nucleated Cells 27 TNC/mcL (0-5) H* 08/22/17 16:21 CSF Glucose 83 mg/dL (40-70) H 08/22/17 16:21 CSF Total Protein 84 mg/dL (15-45) H 08/22/17 16:21 Consult Discharge Plan - Plan Referrals: Rosa Maria Renee, CMS EXPERT [Primary Care Provider] -
[2017-08-24] MEDS: Insulin NPH 100 UNIT/ML (x5UNIT) SQ SCH ×2 (09:50→21:07)
--- NOTE | 2017-08-24 10:21 | Event Note ---
Date of Encounter: 08/24/17 Time of Encounter: 10:12 I did see and exam the patient earlier this morning with Dr Olea at the bedside . The patient continue to complain of a headache that has waxed and waned over the past few days. Dr Olea revisited the patient hx in order to find any incident of trauma or dural puncture, however she denies any such incidents. Dr Olea expressed that he would like to have a neurosurgical opinion in order to determine whether or not a angiogram is necessary, she may also need a hypercoaguable work up. He recommends transfer to a tertiary center for neurosurgical evaluation. Patient and are in agreement they would like to send her to either [place] or [facility], whichever is available. Dr Olea also request a repeat CT scan of the brain prior to transfer. I did speak with [place] transfer center and awaiting acceptance at this time.
[2017-08-24] MEDS ORDERED: *HR* HYDROcodone/Acet 5/325 mg TABLET PO PRN (13:05)
--- NOTE | 2017-08-24 13:40 | Discharge Summary ---
Orders not resulted at time of discharge: Pending orders 08/24/17 19:00 Vancomycin,Trough Timed Date of Encounter: 08/25/17 Time of Encounter: 14:24 - Discharge Diagnosis (1) Chronic intracranial subdural hematoma Priority: Primary Status: Acute Comments: Patient has been experiencing headaches for the past 3 weeks-headaches have waxed and waned over the past couple days increasing today to a 6-7/over 10. MRI of the brain does show what appears to be chronic subdural hematoma/hygroma along with enhancement of the meninges. According to neurology notes this is not uncommon in individuals with low CSF pressure which is usually associated with some previous trauma or dural puncture. Patient denies any recent trauma she does admit to a deep body massage approximately 3 weeks ago neurology notes unsure whether this is related or if this may be cause of viral meningitis. Neurology suggested transfer to tertiary care facility for neurosurgical evaluation and determine what is not an angiogram as needed. She may also need a hypercoagulable workup. Neurology does not feel that the subdural these evacuated this time she is awake and appropriate there is no midline shift on imaging repeat CT of brain with no changes from previous. Patient will be transferred to [facility] for further evaluation We will continue with IV fluids for now We will avoid NSAIDs Tylenol and Tylenol derivatives for pain (2) Viral meningitis, unspecified Priority: Primary Status: Acute Comments: Per neurology note this likely uncomplicated viral meningitis with no evidence of encephalitis lumbar puncture does reveal elevated ABC and elevated protein. 7% lymphocytes and 19% monocytes. Gram stain was negative she continues to experience headaches neurologically she is intact repeat CT shows stable bilateral subdural fluid collections. MRI did show bilateral subdural collections compatible with chronic subdural hematoma hygroma. Neurology suggested to continue with antibiotics until cultures are resulted. We will continue with acyclovir-if possible herpes meningitis We will continue with IV fluids (3) Headache Priority: Primary Status: Acute Comments: 1 headaches continue to wax and wane today they are more intense-brain MRI shows chronic hematoma/hygroma. Repeat CT of brain with no changes. We will transfer patient to [facility] for neurosurgical evaluation Qualifiers: Headache type: unspecified Headache chronicity pattern: unspecified pattern Intractability: not intractable Qualified Code(s): R51 - Headache (4) Diabetes 1.5, managed as type 2 Priority: Secondary Status: Chronic Comments: Continue with insulin (5) HTN (hypertension) Priority: Secondary Status: Chronic Comments: Continue with home medications systolic is 150-160 Qualifiers: Hypertension type: essential hypertension Qualified Code(s): I10 - Essential (primary) hypertension Hospital course: Ms. Austin is a 37 year old female past medical history of diabetes hypertension and obesity patient has been seen by neurology for past 2-3 weeks due to headaches which initiate an her neck radiating to her frontal area. She did have some nausea as well as some photophobia. She was sent to the emergency room from neurology office for evaluation. In [facility] ER patient had an LP completed which was suggestive of meningitis she was initiated on Acyclovir vancomycin and Rocephin. CSF showed increased glucose protein enucleated cells. Initial CT of head was unremarkable. Today preliminary CFS culture revealed no growth antibiotics have been stopped Patient continued to experience headaches which would improve and then the pain would worsen. MRI MRA of head was completed which did show a chronic hematoma/hygroma-which is related to low CS pressure. Patient denies any past injury or trauma she is not on any anticoagulants. She does recall a deep muscle massage that she received 3 weeks ago however the focuses mainly on her lower back. Repeat CT of brain does show stable bilateral subdural fluid collections. Neurology recommends the patient be transferred to tertiary center for neurosurgical evaluation and possible angiogram/hypercoagulable workup. Patient and agree to transfer-prefer either [facility] or [facility] -spoke with [facility] [place] transfer center, patient has been accepted per Dr Hood hospitalist. Discharge discussed with: patient, family Time spent discussing smoking cessation with patient: 3 to 10 minutes - Time Spent with Patient Total time spent providing and/or coordinating discharge services: - Discharge Medications Home Medications: Acetylcysteine [Z-Vbflft-j-Cysteine] 600 mg PO BID 08/22/17 [History] Amoxicillin/Clavulanate [Augmentin] 875 mg PO BID 08/22/17 [History] Cyclobenzaprine HCl 5 mg PO TID PRN 08/22/17 [History] Dapagliflozin Propanediol [Farxiga] 5 mg PO DAILY 08/22/17 [History] Gabapentin [Neurontin] 300 mg PO HS 08/22/17 [History] Insulin NPH, HUMAN [HumuLIN N] 24 unit SQ BID 08/22/17 [History] Insulin Regular, Human [Novolin R] 0 unit SQ TIDWM 08/22/17 [History] Liraglutide [Saxenda] 1.8 mg SQ QPM 08/22/17 [History] Metformin HCl [Glucophage] 1,000 mg PO BID 08/22/17 [History] Methyldopa 750 mg PO BID 08/22/17 [History] Metoprolol Succinate 100 mg PO DAILY 08/22/17 [History] Norethindrone Acetate [Norethindrone AC ([place])] 5 mg PO DAILY 08/22/17 [ History] [place]-3/Dha/Epa/Fish Oil [Fish Oil 1,000 mg Softgel] 1,000 mg PO DAILY 08/22/17 [History] Ondansetron ODT [Zofran ODT] 4 mg PO BID PRN 08/22/17 [History] Pnv with Ca,No.72/Iron/FA [Pnv Plus Multivit Tab] 1 tab PO DAILY [History] SUMAtriptan succinate [Imitrex] 50 mg PO Q2H PRN MDD 100 mg 08/22/17 [History] hydroCHLOROthiazide [Hydrochlorothiazide] 25 mg PO DAILY 08/22/17 [History] Allergies/Adverse Reactions: 3 Allergy/AdvReac Type Severity Reaction Status Date / Time No Known Allergies Allergy Verified 08/22/17 14:05 Date of admission: 08/22/17 21:48 Primary care physician: Rosa Maria Renee CNP Discharging clinician: Alize Virk Anticipated date of discharge: 08/24/17 - Constitutional Vitals: Temp Pulse Resp BP Pulse Ox 99.1 F 77 20 161/96 98 08/24/17 10:58 08/24/17 10:58 08/24/17 10:58 08/24/17 10:58 08/24/17 10:58 General appearance: Present: A&O X 2, A&O X 3 - Eye Eye exam: Present: PERRL, conjuntiva pink, sclera anicteric Pupils: Present: PERRL - Neck Neck exam general surgery: Present: supple, trachea midline. Absent: lymphadenopathy - Respiratory Respiratory exam: Present: CTAB. Absent: accessory muscle use, rales, rhonchi, wheezes - Cardiovascular Cardiovascular exam: Present: RRR, +S1, +S2. Absent: diastolic murmur, gallop, rubs, systolic murmur - GI/Abdominal GI/Abdominal exam: Present: normal bowel sounds, soft, no peritoneal signs. Absent: distended, tenderness - Extremities Exam Extremities exam: Present: warm, radial pulses palpable and symmetrical. Absent : calf tenderness, cyanotic, pedal edema - Neurological Exam Neurological exam: Present: CN II-XII intact, oriented X3, no focal deficits. Absent: pronater drift, facial droop, speech deficit - Skin Skin exam: Present: dry, intact - Patient Status Disposition: Transfer Critical Access Hosp Condition: Fair Functional capacity at discharge: independent ambulation Overall status at discharge: patient is not back to baseline - Discharge Instructions Follow Up With: Rosa Maria Renee CNP [Primary Care Provider] - Sylvester Olea MD [Non-Partnered Physician] - - Diet and Activity Activity: increase activity as tolerated Diet: diabetic diet
[2017-08-24] MEDS: LIRAGLUTIDE 1.8 MG SQ SCH (18:56)
[2017-08-24] MEDS: Gabapentin 300 MG CAPSULE PO SCH (21:06)
[2017-08-25] MEDS: Acetaminophen 325 MG TABLET PO PRN ×2 (03:37→10:25)
[2017-08-25] MEDS: Acyclovir 750 MG in D5% in Water 250 ML IVPB SCH ×2 (06:09→14:23)
[2017-08-25] MEDS: cefTRIAXone 1,000 MG in Water for inj. (sterile) 20 ML 10 ML IVP SCH (08:16)
[2017-08-25] MEDS: *HR* Acetylcysteine 20% 600 MG/3 ML ORAL SYRINGE PO SCH (08:17)
[2017-08-25] MEDS: Prenatal Vit/FA 1 EACH TABLET PO SCH (08:18)
[2017-08-25] MEDS: hydroCHLOROthiazide 25 MG TABLET PO SCH (08:18)
[2017-08-25] MEDS: Lactobacillus 1 EACH CAP.SPRINK PO SCH (08:18)
[2017-08-25] MEDS: Insulin LISPRO 300 UNITS/3 ML VIAL SQ SCH ×2 (08:18→12:23)
[2017-08-25] MEDS: (Omega-3/Dha/Epa/Fish Oil [Fish Oil 1,000 Mg Softgel]) PO SCH (08:28)
[2017-08-25] MEDS: (Dapagliflozin Propanediol [Farxiga] 5 MG) PO SCH (08:28)
[2017-08-25] MEDS ORDERED: Azelastine 0.1% Nasal Spray 30 ML BOTTLE NS SCH (09:00)
[2017-08-25] MEDS: Insulin NPH 100 UNIT/ML (x5UNIT) SQ SCH (10:24)
[2017-08-25 11:22] VITALS: BP 133/83
[2017-08-25 15:02] LABS: West Nile Virus PCR Source CSF
[2017-08-25] MEDS ORDERED: Aminoglycoside Consult 1 EACH MC ONE (15:42)
[2017-08-28 08:22] LABS: Enterovirus RNA Qual (PCR) NOT DETECTED; West Nile Virus RNA Result NOT DETECTED
== END 2017-08-25 15:43 | disposition other institution (70) | DRG 75 ==
LOC: 3BNU 13:57 → EMEROO 13:57 → 3BNU 20:22
PROVIDERS: ADMIT Student in an Organized Health Care Education/Training Program; ATTEND Registered Nurse